=== PATIENT | male | born 2000 | race African-American/Black ===

== ENCOUNTER 2023-01-06 13:31 | Emergency (ER) | payer MEDICAID, OTHER ==
[~2023-01-06] VITALS: Ht 185.4 cm; Wt 105.0 kg
[2023-01-06 13:41] VITALS: O2SAT 99
[2023-01-06] MEDS ORDERED: KETOROLAC 60MG/2ML VIAL IM ONE (14:15)
[2023-01-06 14:27] VITALS: BP 119/77
[2023-01-06] MEDS ORDERED: OXYCODONE HCL 5MG TABLET PO ONE (14:45)
[2023-01-06] MEDS ORDERED: IBUP-2030 MT (15:36)
[2023-01-06 16:19] VITALS: PULSE 90; RESP 16; TEMP 98.6
== END 2023-01-06 16:22 | disposition home or self-care (01) ==
LOC: ER 13:31
DX: S92.331A Displaced fracture of third metatarsal bone, right foot, initial encounter for closed fracture (principal); V18.0XXA Pedal cycle driver injured in noncollision transport accident in nontraffic accident, initial encounter; Y93.89 Activity, other specified; Y92.89 Other specified places as the place of occurrence of the external cause; Y99.8 Other external cause status
CPT/HCPCS: 73610; 73630; 99284; J1885; Z7610 ×3

== ENCOUNTER 2023-12-18 20:48 | Emergency (ER) | payer MEDICAID, OTHER ==
[~2023-12-18] VITALS: Ht 185.4 cm; Wt 108.0 kg
[~2023-12-18 20:48] MED LIST: IBUP-2030 MT
[2023-12-18 20:54] VITALS: TEMP 98.2; O2SAT 99
[2023-12-18 22:28] LABS: BASOPHILS % 0.8 % (0.0-2.0); EOSINOPHILS % 3.1 % (0.0-5.0); HEMATOCRIT. 44.1 % (42.0-52.0); HEMOGLOBIN. 14.7 g/dL (14.0-18.0); LYMPHOCYTES % 33.9 % (20.0-50.0); MEAN CORPUSCULAR HEMOGLOBIN 28.3 pg (28.0-32.0); MEAN CORPUSCULAR HGB CONC 33.3 g/dL (31.0-37.0); MEAN CORPUSCULAR VOLUME 85.1 fL (80.0-94.0); MEAN PLATELET VOLUME 7.3 fl (7.4-10.4); MONOCYTES % 8.9 % (2.0-8.0); NEUTROPHILS % 53.3 % (40.0-76.0); PLATELET 325 x1000/uL (130-400); RED BLOOD CELL COUNT 5.19 mill/uL (4.7-6.1); RED CELL DISTRIBUTION WIDTH 13.3 % (11.6-14.6); WHITE BLOOD COUNT 7.8 x1000/uL (4.5-11.0)
[2023-12-18 22:36] LABS: CHLORIDE 105 mEq/L (98-107); POTASSIUM 3.8 mEq/L (3.5-5.1); SODIUM 140 mEq/L (136-145)
[2023-12-18 22:37] LABS: CARBON DIOXIDE 29 mEq/L (21-32)
[2023-12-18 22:38] LABS: CALCIUM 10.1 mg/dL (8.7-10.4)
[2023-12-18 22:42] LABS: GLUCOSE 79 mg/dL (70-105); UREA NITROGEN BLOOD 11 mg/dL (9-23)
[2023-12-18 22:43] LABS: ALANINE AMINOTRANSFERASE 40 IU/L (10-49)
[2023-12-18 22:44] LABS: ALBUMIN 4.9 g/dL (3.2-4.8); ASPARTATE AMINOTRANSFERASE 37 IU/L (<34)
[2023-12-18 22:45] LABS: PROTEIN TOTAL 7.8 g/dL (6.0-8.3)
[2023-12-19 00:50] VITALS: BP 125/78; PULSE 52; RESP 16; O2SAT 96
== END 2023-12-19 00:50 | disposition home or self-care (01) ==
LOC: ER 20:48
DX: R51.9 Headache, unspecified (principal); I49.9 Cardiac arrhythmia, unspecified
CPT/HCPCS: 36415; 80053; 85025; 93005; 99284

== ENCOUNTER 2024-02-27 16:39 | Emergency (ER) | payer MEDICAID, OTHER ==
[~2024-02-27] VITALS: Ht 185.4 cm; Wt 114.0 kg
[2024-02-27 16:55] VITALS: O2SAT 100
[2024-02-27] MEDS ORDERED: TETANUS, DIPHTHERIA, PERTUSSIS VAC/PF 0.5ML (>10YR OLD) IM ONE (17:30)
[2024-02-27] MEDS: LIDOCAINE HCL 1% 20ML VIAL INFIL ONE (19:10)
[2024-02-27 19:12] VITALS: BP 130/78; PULSE 70; RESP 18; TEMP 36.66960; O2SAT 100
== END 2024-02-27 19:13 | disposition home or self-care (01) ==
LOC: ER 16:39
DX: S61.411A Laceration without foreign body of right hand, initial encounter (principal); W26.9XXA Contact with unspecified sharp object(s), initial encounter; Y93.89 Activity, other specified; Y92.89 Other specified places as the place of occurrence of the external cause; Y99.8 Other external cause status
CPT/HCPCS: 12001; 99282; J3490; Z7610 ×2